=== PATIENT | male | born 1950 | race Caucasian/White ===

== ENCOUNTER 2017-11-22 09:00 | Emergency (ER) | payer BC, MEDICAID ==
[~2017-11-22] VITALS: Ht 167.6 cm; Wt 70.4 kg
[2017-11-22 09:16] VITALS: BP 105/78
--- NOTE | 2017-11-22 09:20 | NUR ---
PT AA&OX4, RR EVEN/UNLABORED, STEADY GAIT; PT TO LOBBY AWAITING OPEN BED.
--- NOTE | 2017-11-22 12:34 | NUR ---
PATIENT TO BED 12 AT THIS TIME.
--- NOTE | 2017-11-22 12:44 | NUR ---
PATIENT BIB SELF C/O PRASAD CATH REPLACEMENT AND RT FOOT PAIN; PT STATES "THERE IS A CRACK IN THE TUBING"; DRY BLOOD STAINS NOTED ON BANDAGE;PT STATES "I DROPPED SOMETHING ON MY RT FOOT 3 MONTHS AGO".HX OF PROSTATE SURGERY, HTN; DENIES N/V/D; SKIN IS PINK/WARM/DRY; AAOX4 WITH EVEN AND STEADY GAIT; LUNGS CLEAR BL; HR EVEN AND REGULAR; PT DENIES ANY FEVER, CP, SOB, OR COUGH AT THIS TIME; PATIENT STATES PAIN OF 5/10 AT THIS TIME;PATIENT POSITIONED FOR COMFORT; HOB ELEVATED; BEDRAILS UP X2; BED DOWN. ER MD MADE AWARE OF PT STATUS.
--- NOTE | 2017-11-22 14:37 | NUR ---
TRIED TO REPLACE SUPRAPUBIC CATHETER;CATHYETER WON'T COME OUT EVEN THOUGH WE DEFLATE THE ANCHOR;ER NOTIFIED;PER DR MCGARRY REINFLATEANCHOR AND INSTRUCT PT TO SEE UROLOGIST;
--- NOTE | 2017-11-22 14:38 | NUR ---
DR MCGARRY AT BEDSIDE.
--- NOTE | 2017-11-22 14:42 | NUR ---
Patient discharged with v/s stable. Written and verbal after care instructions given and explained. Patient verbalized understanding. Ambulatory with steady gait. All questions addressed prior to discharge. Advised to follow up with PMD.
[2017-11-22 14:43] VITALS: BP 110/74
== END 2017-11-22 14:42 | disposition home or self-care (01) ==
LOC: MED 09:00
DX: Z46.6 Encounter for fitting and adjustment of urinary device (principal); Z90.49 Acquired absence of other specified parts of digestive tract; I10 Essential (primary) hypertension
CPT/HCPCS: 73630; 99284

== ENCOUNTER 2018-11-19 07:53 | Emergency (ER) | payer OTHER, MEDICAID ==
[~2018-11-19] VITALS: Ht 165.1 cm; Wt 74.1 kg
[2018-11-19 08:00] VITALS: BP 143/89
[2018-11-19 08:22] VITALS: BP 140/86
== END 2018-11-19 08:22 | disposition home or self-care (01) ==
LOC: MED 07:53
DX: R30.0 Dysuria (principal); R31.9 Hematuria, unspecified; I10 Essential (primary) hypertension; Z90.49 Acquired absence of other specified parts of digestive tract
CPT/HCPCS: 81002; 99283

== ENCOUNTER 2019-06-04 06:11 | Emergency (ER) | payer OTHER, MEDICAID ==
[~2019-06-04] VITALS: Ht 167.6 cm; Wt 75.3 kg
[2019-06-04 06:15] VITALS: BP 133/80
--- NOTE | 2019-06-04 06:18 | NUR ---
TO LOBBY A/W BED AMBULATORY
--- NOTE | 2019-06-04 08:09 | NUR ---
PT TO ED REQUESTING CATHETER REMOVAL S/P INSERTION X 2 DAYS AGO. 500 ML CLEAR, YELLOW URINE NOTED IN PRASAD BAG. PER PT "I WANT THIS OUT, MY DOCTOR SAID THAT HE WILL TAKE IT OUT THURSDAY ONCE IM DRAINING CLEAR PEE BUT I CAN'T WAIT" PT PLACED INTO BED, PENDING MD BROWN.
--- NOTE | 2019-06-04 09:10 | NUR ---
PRASAD CATH REMOVED, PER MD ORDERS. TIP INTACT. PT TOLERATED WELL.
--- NOTE | 2019-06-04 09:15 | NUR ---
APPROX 15ML BLOOD TINGED URINE NOTED IN URINAL. ENCOURAGED TO CONTINUE TO VOID.
--- NOTE | 2019-06-04 09:20 | NUR ---
50ML YELLOW/CLEAR URINE IN URINAL. PT REPORTED BLADDER FEELING EMPTY. ER MD AWARE.
[2019-06-04 09:29] VITALS: BP 135/74
== END 2019-06-04 09:29 | disposition home or self-care (01) ==
LOC: MED 06:11
DX: Z46.6 Encounter for fitting and adjustment of urinary device (principal); I10 Essential (primary) hypertension; Z98.890 Other specified postprocedural states
CPT/HCPCS: 99283

== ENCOUNTER 2019-06-04 15:51 | Emergency (ER) | payer OTHER, MEDICAID ==
[~2019-06-04] VITALS: Ht 167.6 cm; Wt 75.3 kg
[2019-06-04 15:55] VITALS: BP 149/79
--- NOTE | 2019-06-04 15:55 | NUR ---
PATIENT AMBULATED TO ER BED 10.
--- NOTE | 2019-06-04 16:08 | NUR ---
PT TO ED FOR C/O "BLOATING" TO STOMACH S/P PRASAD CATHETER REMOVAL THIS MORNING. PT REPORTS NORMAL URINATION PATTERNS POST CATHETER REMOVAL. DENIES ANY PAIN UPON URINATION. NO OBVIOUS BLADDER DISTENTION NOTED. ABD IS SOFT NON TENDER. PT PLACED INTO BED, PENDING MD BROWN.
--- NOTE | 2019-06-04 17:00 | NUR ---
PT ABLE TO VOID IN URINAL APPROX 100ML OF CLEAR, YELLOW, URINE.
[2019-06-04 17:30] VITALS: BP 125/84
--- NOTE | 2019-06-04 18:14 | NUR ---
Patient discharged with v/s stable. Written and verbal after care instructions given and explained. Patient alert, oriented and verbalized understanding of instructions. Ambulatory with steady gait. All questions addressed prior to discharge. ID band removed. Patient advised to follow up with PMD. Rx of BENTYL given. Patient educated on indication of medication including possible reaction and side effects. Opportunity to ask questions provided and answered.
== END 2019-06-04 18:14 | disposition home or self-care (01) ==
LOC: MED 15:51
DX: R10.9 Unspecified abdominal pain (principal); R14.0 Abdominal distension (gaseous); I10 Essential (primary) hypertension; Z98.890 Other specified postprocedural states
CPT/HCPCS: 74018; 99283; Q0092

== ENCOUNTER 2019-06-11 23:20 | Emergency (ER) | payer OTHER, MEDICAID ==
[~2019-06-11] VITALS: Ht 167.6 cm; Wt 72.6 kg
[2019-06-11 23:29] VITALS: BP 107/79
--- NOTE | 2019-06-11 23:33 | NUR ---
PT TO [facility], VSS, AMBULATORY.
--- NOTE | 2019-06-11 23:56 | NUR ---
PT AMBULATED TO ER BED 12
--- NOTE | 2019-06-12 | NUR ---
PT BIB SELF FOR URINARY CATHETER BAG CHANGE. PT STATES HE WAS DRAINING BAG AND HE PULLED AND NOW THE BAG DOES NOT DRAIN AND IS LEAKING. PT DENEIS ANY PAIN. PRASAD INSERTION SITE, NO REDNESS OR DRAINAGE NOTED. PRASAD BAG HAS TAPE PLACED TO IT BY PT. PT AWAKE AND ALERT, AMBULATORY . PT STATES HE HAS LILLIAM W/ PCP ON THURSDAY FOR PRASAD CHANGE.
--- NOTE | 2019-06-12 00:07 | NUR ---
pt urinary drainage bag changed, yellow urine draining into bag. pt tolerated procedure well.
--- NOTE | 2019-06-12 00:48 | NUR ---
PT RESTING IN BED COMFORTABLY WITH EYES OPEN. VSS. WILL CONTINUE TO MONITOR.
[2019-06-12 01:31] VITALS: BP 107/70
== END 2019-06-12 01:31 | disposition home or self-care (01) ==
LOC: MED 23:20
DX: T83.038A Leakage of other urinary catheter, initial encounter (principal); I10 Essential (primary) hypertension; Y92.89 Other specified places as the place of occurrence of the external cause
CPT/HCPCS: 99284

== ENCOUNTER 2019-06-17 18:04 | Emergency (ER) | payer OTHER, MEDICAID ==
[~2019-06-17] VITALS: Ht 167.6 cm; Wt 72.6 kg
[2019-06-17 18:10] VITALS: BP 129/76
--- NOTE | 2019-06-17 19:21 | NUR ---
PT TO ED REQUESTING NEW LEG BAG FOR PRASAD. PT DENIES ANY PAIN. PT STATES "I JUST NEED A NEW LEG BAG THEY DIDNT GIVE ME AN EXTRA BAG" NO S/S OF INFECTION FROM PRASAD NOTED. PT IN BED, PENDING MD BROWN.
--- NOTE | 2019-06-17 19:25 | NUR ---
OLD BAG REMOVED 50ML DARK YELLOW URINE NOTED. NEW LEG BAG APPLIED.
[2019-06-17 19:41] VITALS: BP 129/76
== END 2019-06-17 19:42 | disposition home or self-care (01) ==
LOC: MED 18:04
DX: T83.118A Breakdown (mechanical) of other urinary devices and implants, initial encounter (principal); I10 Essential (primary) hypertension; Z76.0 Encounter for issue of repeat prescription; Z88.6 Allergy status to analgesic agent; Y73.8 Miscellaneous gastroenterology and urology devices associated with adverse incidents, not elsewhere classified
CPT/HCPCS: 99284